=== PATIENT | male | born 1975 | race Caucasian/White ===

== ENCOUNTER 2019-02-17 08:11 | Emergency (ER) | payer OTHER ==
[~2019-02-17] VITALS: Ht 175.2 cm; Wt 74.8 kg
[~2019-02-17 08:11] MED LIST: ANAPROX DS550 MG PO; DARVOCET N 1001 TAB PO; KEFLEX500 MG PO; MOTRIN800 MG PO; PERCOCET 325 MG1 TA7 PO; ZITHROMAX Z PA250 MG PO
[2019-02-17 08:14] VITALS: BP 133/71
== END 2019-02-17 10:10 | disposition home or self-care (01) ==
LOC: ED 08:11
DX: S89.91XA Unspecified injury of right lower leg, initial encounter (principal); Z88.6 Allergy status to analgesic agent; X58.XXXA Exposure to other specified factors, initial encounter; Y93.89 Activity, other specified; Y92.59 Other trade areas as the place of occurrence of the external cause; Y99.8 Other external cause status

== ENCOUNTER 2019-05-24 05:25 | Inpatient (IN) | payer OTHER ==
[~2019-05-24] VITALS: Ht 175.2 cm; Wt 71.7 kg
[2019-05-24] MEDS ORDERED: BUSPIRONE HCL10 MG PO (05:32)
[2019-05-24] MEDS ORDERED: 'CLONIDINE0.1 MG PO (05:32)
[2019-05-24] MEDS ORDERED: NALTREXONE HCL50 MG PO (05:33)
[2019-05-24] MEDS ORDERED: OLANZAPINE10 MG PO (05:33)
[2019-05-24] MEDS ORDERED: VYVANSE70 MG PO (05:33)
[2019-05-24] MEDS ORDERED: LORAZEPAM0.5 MG PO (05:35)
[2019-05-24 05:37] VITALS: BP 90/59
--- NOTE | 2019-05-24 06:03 | NUR ---
PT THREW EMPTY URINAL ON FLOOR AND STATES "I WANT MY FUCKING DISCHARGE PAPERS". PHYSICIAN NOTIFIED AND AT BEDSIDE.
[2019-05-24 06:09] LABS: BASO % 0.3 % (0.0-1.0); EOS # 0.1 10*3/uL (0.0-0.4); EOS % 0.6 % (1.0-4.0); HEMATOCRIT 43.4 % (42.0-52.0); HEMOGLOBIN 15.4 g/dl (14.0-18.0); LYMPH # 0.7 10*3/uL (1.3-4.4); LYMPH % 8.4 % (27.0-41.0); MEAN CELL VOLUME 97.1 fl (80.0-94.0); MEAN CORPUSCULAR HGB 34.5 pg (27.0-31.0); MEAN CORPUSCULAR HGB CONC 35.5 g/dl (33.0-37.0); MEAN PLATELET VOLUME 11.6 fl (9.6-12.3); MONO # 0.7 10*3/uL (0.1-1.0); MONO % 8.4 % (3.0-9.0); NEUT # 7.3 10*3/uL (2.3-7.9); NEUT % 82.1 % (47.0-73.0); PLATELET COUNT AUTOMATED 117 10*3/uL (130-400); RED BLOOD COUNT 4.47 10*6/uL (4.50-5.90); RED CELL DISTRI WIDTH 14.2 % (0-14.5); WHITE BLOOD COUNT 8.9 10*3/uL (4.8-10.8)
[2019-05-24 06:24] LABS: ALBUMIN 3.4 gm/dl (3.1-4.5); ALKALINE PHOSPHATASE 84 U/L (45-117); BUN 24 mg/dl (7-24); CHLORIDE 110 mmol/L (98-107); CPK 752 U/L (39-308); CREATININE 1.27 mg/dL (0.70-1.30); POTASSIUM 4.3 mmol/L (3.5-5.1); SGOT/AST 38 IU/L (3-35); SGPT/ALT 33 U/L (12-78); SODIUM 142 mmol/L (136-145); TOTAL PROTEIN 6.4 gm/dL (6.4-8.2)
[2019-05-24 06:28] LABS: ACETAMINOPHEN (TYLENOL) < 5.0 ug/ml (10-30); ETHYL ALCOHOL < 3.0 mg/dl (<3); TROPONIN I < 0.015 ng/ml (<0.045)
--- NOTE | 2019-05-24 06:58 | NUR ---
PT CONITNUES TO BE UNCOOPERATIVE WITH LEAVING URINE SPECIMEN. URINAL AT BEDSIDE. IVF INFUSING PER ORDERS.
--- NOTE | 2019-05-24 07:10 | NUR ---
REPORT FROM ALEXUS MCKEON AT THIS TIME.
--- NOTE | 2019-05-24 09:17 | NUR ---
PATIENT HAS BEEN PLACED BACK INTO BED MULTIPLE TIMES. SECURITY HAS BEEN CALLED WHEN PATIENT WENT AROUND THE CORNER AND WAS ATTEMPTING TO GO UP THE HALLWAY. SECURITY IN ROOM WITH PATIENT AND WANDA MCKEON.
[2019-05-24 13:00] VITALS: BP 96/53
[2019-05-24 14:40] VITALS: BP 106/61
--- NOTE | 2019-05-24 14:40 | NUR ---
A 43, admitted to [facility]U, under the services of ED Thornton MD with a diagnosis of OVERDOSE. Chief complaint is PER FATHER HE HAS BEEN TAKING PILLS ALL DAY. Patient arrived via stretcher from ER. Monitor applied. Initial assessment completed. Vital signs taken and recorded. ED THORNTON MD notified of admission to the unit. Orders received. See assessment for past medical history, medications and allergies. Patient and/or family oriented to unit. [facility]U visitation policy reviewed. DOUGLAS DURANT
--- NOTE | 2019-05-24 14:40 | NUR ---
PATIENT TAKEN TO FLOOR BY THIS NURSE AND MARTHA RN. BEDSIDE GIVEN TO KEVIN MCKEON. NO CHANGE IN PATIENT STATUS. PATIENT STILL INCOMPREHENSIBLE WORDS AND IS DISORIENTED.
--- NOTE | 2019-05-24 15:14 | NUR ---
ADMISSION ORDERS RECEIVED FROM DR ROWE. [facility] NOTIFIED OF DR LEE CONSULT. PT CLIMBING OUT OF BED. UNABLE TO REORIENT PT. PT PULLING AT IV SITE. PLACED PT IN WRIST RESTRAINTS TO KEEP HIM FROM HARMING HIMSELF OR STAFF.
--- NOTE | 2019-05-24 15:20 | NUR ---
MEDICATED PT PER PRN ORDER WITH IV ATIVAN 1MG.
[2019-05-24 16:00] VITALS: BP 108/63
--- NOTE | 2019-05-24 17:50 | NUR ---
DR BONE IN TO SEE PT. HE SPOKE WITH PT'S EXGIRLFRIEND R/T PT'S HISTORY. I SHOWED DR BONE PT'S WOUNDS.
--- NOTE | 2019-05-24 18:56 | NUR ---
FABIÁN MIRZA NOTIFIED OF CONSULT.
--- NOTE | 2019-05-24 19:14 | NUR ---
PT CLIMBING OVER THE RAILS OF THE BED. PT REMAINS CONFUSED. UNABLE TO REORIENT. MEDICATED PT PER PRN ORDER WITH IV ATIVAN.
[2019-05-24 20:00] VITALS: BP 102/68
[2019-05-24 21:51] LABS: BILIRUBIN NEGATIVE (NEGATIVE); BLOOD NEGATIVE (NEGATIVE); CLARITY CLEAR (CLEAR); COLOR YELLOW (YELLOW); GLUCOSE NEGATIVE (NEGATIVE); KETONE NEGATIVE (NEGATIVE); LEUKO ESTERASE NEGATIVE (NEGATIVE); NITRITE NEGATIVE (NEGATIVE); UROBILINOGEN 0.2 E.U./dl (0.2-1.0)
[2019-05-24 22:00] LABS: EPITHELIAL CELLS 0-2
[2019-05-24 22:07] LABS: URINE AMPHETAMINES < 1000 (1000ng/ml); URINE BARBITURATES < 200 (200ng/ml); URINE BENZODIAZEPINES < 200 (200ng/ml); URINE CANNABINOIDS (THC) < 50 (50ng/ml); URINE COCAINE < 300 (300ng/ml); URINE METHADONE < 300 (300ng/ml); URINE OPIATES < 300 (300ng/ml)
[2019-05-24 22:09] LABS: URINE PHENCYCLIDINE < 25 (25ng/ml)
[2019-05-25] VITALS: BP 104/56
[2019-05-25 04:00] VITALS: BP 97/46
--- NOTE | 2019-05-25 05:45 | NUR ---
KRISTYISIDRORUTXU [id number] Please refer to the physician's history and physical for past medical history, comorbid conditions, and allergies. Diagnosis: METABOLIC ENCEPHALOPATHY DRUG OVERDOSE Alejandro Score: 18,LOW OR NO RISK WOUND DESCRIPTIONS: Wound Number: 1 Location of the wound: right knee Type of wound: abrasion Thickness: Partial Size: 3.7cm x 2.2cm x <0.1cm Tunneling: none Undermining: none Sinus Tract: none Presence of Exudate: none Amount: None Color: Red, yellow Odor: None Periwound Skin Appearance: Normal Wound edges: approximated Pain (associated with wound): none at time of assessment How does patient state this happened? pt unable to state how this happened Wound Number: 2 Location of the wound: left knee Type of wound: abrasion Thickness: Partial Size: 8.0cm x 2.5cm x <0.1cm Tunneling: none Undermining: none Sinus Tract: none Presence of Exudate: none Amount: None Color: Red, yellow Odor: None Periwound Skin Appearance: Normal Wound edges: approximated Pain (associated with wound): none at time of assessment How does patient state this happened? pt unable to state how this happened Wound Number: 3 Location of the wound: left lateral ankle proximal ( left lateral malleolus ) Type of wound: abrasion Thickness: Partial Size: .5cm x 0.5cm x <0.1cm Tunneling: none Undermining: none Sinus Tract: none Presence of Exudate: none Amount: None Color: yellow, brown Odor: None Periwound Skin Appearance: Erythema Wound edges: approximated Pain (associated with wound): none at time of assessment How does patient state this happened? pt unable to state how this happened Wound Number: 4 Location of the wound: left lateral ankle distal ( left ankle front ) Type of wound: abrasion Thickness: Partial Size: 0.5cm x 0.4cm x <0.1cm Tunneling: none Undermining: none Sinus Tract: none Presence of Exudate: none Amount: None Color: yellow, brown Odor: None Periwound Skin Appearance: Normal Wound edges: approximated Pain (associated with wound): none at time of assessment How does patient state this happened? pt unable to state how this happened Wound Number: 5 Location of the wound: left great toe ( proximal left great toe ) Thickness: Full Size: 0.6cm x 1.1cm x <0.1cm Tunneling: none Undermining: none Sinus Tract: none Presence of Exudate: none Amount: None Color: Yellow, brown Odor: None Periwound Skin Appearance: Erythema Wound edges: approximated Pain (associated with wound): none at time of assessment How does patient state this happened? pt unable to state how this happened Wound Number: 6 Location of the wound: left second toe distal ( left second toe ) Thickness: Full Size: 0.2cm x 0.4cm x <0.1cm Tunneling: none Undermining: none Sinus Tract: none Presence of Exudate: none Amount: None Color: Brown, yellow Odor: None Periwound Skin Appearance: Erythema Wound edges: approximated Pain (associated with wound): none at time of assessment How does patient state this happened? pt unable to state how this happened Wound Number: 7 Location of the wound: right great toe ( proximal right great toe ) Thickness: Full Size: 0.6cm x 2.0cm x <.1cm Tunneling: none Undermining: none Sinus Tract: none Presence of Exudate: none Amount: None Color: Brown, yellow Odor: None Periwound Skin Appearance: Erythema Wound edges: approximated Pain (associated with wound): none at time of assessment How does patient state this happened? pt unable to state how this happened Wound Number: 8 Location of the wound: right second toe Thickness: Full Size: 0.4cm x 0.7cm x <0.1cm Tunneling: none Undermining: none Sinus Tract: none Presence of Exudate: none Amount: None Color: Brown, yellow Odor: None Periwound Skin Appearance: Erythema Wound edges: approximated Pain (associated with wound): none at time of assessment How does patient state this happened? pt unable to state how this happened Wound Number: 9 Location of the wound: left second toe proximal Thickness: Full Size: 0.2cm x 0.6cm x <0.1cm Tunneling: none Undermining: none Sinus Tract: none Presence of Exudate: none Amount: None Color: Brown, yellow Odor: None Periwound Skin Appearance: Erythema Wound edges: approximated Pain (associated with wound): none at time of assessment How does patient state this happened? pt unable to state how this happened Surface the patient is resting on: XPRT SKIN PREVENTION RECOMMENDATION: 1. Pressure redistribution support surface as appropriate 2. Elevate heels 3. Remove boots/TEDS every shift and reapply 4. Head of bed 30 degrees as tolerated 5. Assess nutrition and hydration 6. Manage moisture 7. Avoid the use of containment devices while in bed 8. Use absorptive products on surfaces limit layers of linens on bed 9. Turn and reposition every 1-2 hours in bed and every 1 hour in chair as tolerated 10. Weight shifts every 15 minutes while up in chair 11. Offloading with pillows or device to keep heels elevated off bed 12. Monitor skin at least every shift 13. Inspect under medical devices twice a day WOUND TREATMENT RECOMMENDATIONS: Dressing change: Cleanse right knee, left knee, left lateral ankle proximal, left lateral ankle distal, right 2nd toe, right great toe, left great toe, left 2nd toe proximal, and left 2nd toe distal with nss and apply bacitracin daily and prn for soiling.
[2019-05-25 06:07] LABS: BUN 16 mg/dl (7-24); CHLORIDE 114 mmol/L (98-107); CREATININE 0.93 mg/dL (0.70-1.30); POTASSIUM 3.6 mmol/L (3.5-5.1); SODIUM 144 mmol/L (136-145)
[2019-05-25 06:11] LABS: BASO % 0.3 % (0.0-1.0); EOS # 0.2 10*3/uL (0.0-0.4); EOS % 3.1 % (1.0-4.0); HEMOGLOBIN 14.5 g/dl (14.0-18.0); LYMPH # 1.1 10*3/uL (1.3-4.4); LYMPH % 18.6 % (27.0-41.0); MEAN CELL VOLUME 97.4 fl (80.0-94.0); MEAN CORPUSCULAR HGB 33.6 pg (27.0-31.0); MEAN CORPUSCULAR HGB CONC 34.5 g/dl (33.0-37.0); MEAN PLATELET VOLUME 12.3 fl (9.6-12.3); MONO # 0.5 10*3/uL (0.1-1.0); MONO % 7.7 % (3.0-9.0); NEUT # 4.1 10*3/uL (2.3-7.9); NEUT % 70.1 % (47.0-73.0); PLATELET COUNT AUTOMATED 99 10*3/uL (130-400); RED BLOOD COUNT 4.31 10*6/uL (4.50-5.90); WHITE BLOOD COUNT 5.9 10*3/uL (4.8-10.8)
[2019-05-25 08:00] VITALS: BP 104/50
--- NOTE | 2019-05-25 08:00 | NUR ---
PT SLEEPING. VSS. NO ACUTE DISTRESS NOTED.
--- NOTE | 2019-05-25 09:40 | NUR ---
psychiatric assessment: attempted to meet with client, he was very drowsy and c/o couldnt hear me, wendy kauffman attempted to help ask questions in a loud voice so he could hear, he was not willing to discuss and kept falling asleep,. appears to have some confusion as to what hospital he is in or what happened, i will need to wait until client is awake and alert to determine whether this was suicide attempt or if he is suicidal,. client is prescribed many medications from [facility] unsure what he took as his urine drug was negative. will follow as needed. dr watt has not been in yet this am.
[2019-05-25 12:00] VITALS: BP 98/50
--- NOTE | 2019-05-25 12:23 | NUR ---
PT AWAKE AND ALERT TO PERSON AND PLACE. VSS. PT ABLE TO ANSWER QUESTIONS ASKED AND FOLLOW COMMANDS. LUNCH ORDERED. PT DID FALL BACK ASLEEP.
--- NOTE | 2019-05-25 12:25 | NUR ---
PT AWAKE AND ALERT. RESTRAINTS UNTIED FROM THE BED.
[2019-05-25 16:00] VITALS: BP 101/54
--- NOTE | 2019-05-25 16:46 | NUR ---
PT RESTING. NO ACUTE DISTRESS NOTED AT THIS TIME.
--- NOTE | 2019-05-25 17:26 | NUR ---
PT'S EXGIRLFRIEND,THANG, BROUGHT IN COPIED TEXT MESSAGES FROM HER PHONE WHERE PT HAD THREATENED TO KILL HIMSELF. I PLACED THOSE IN HIS CHART FOR THE DOCTORS TO READ.
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
--- NOTE | 2019-05-25 19:01 | NUR ---
DR BONE UPDATED ON WHAT PT VOICED WHEN ASKED WHAT HAPPENED TO HIM PRIOR TO ADMISSION. DR BONE STATED TO UPDATE PSYCH AND ASK THEM ABOUT RENEWING HIS HOME MEDS. DR BONE DID ORDER MOTRIN FOR PT'S C/O BACK PAIN.
[2019-05-25 20:00] VITALS: BP 122/65
--- NOTE | 2019-05-25 20:11 | NUR ---
PATIENT DROWSY, BUT IS ABLE TO ANSWER QUESTIONS APPROPRIATELY THROUGHOUT ASSESSMENT. PATIENT IS ABLE TO USE URINAL AND REPOSITIONS SELF WITHOUT DIFFICULTY. PATIENT EXHIBITS A FLAT AFFECT THROUGHOUT ASSESSMENT AND ANSWERS "I DON'T KNOW" TO MULTIPLE QUESTIONS ON SUICIDE RISK ASSESSMENT. PATIENT STATES HE DOESN'T WANT TO HURT HIMSELF AT THIS TIME. CALL LIGHT WITHIN REACH. SEE ASSESSMENT.
[2019-05-26] VITALS: BP 105/34
[2019-05-26 04:00] VITALS: BP 96/51
--- NOTE | 2019-05-26 04:57 | NUR ---
Recommend follow up for wound care in outpatient setting patient refused at this time.
--- NOTE | 2019-05-26 06:00 | NUR ---
SCHEDULED DOSE OF PO ATIVAN GIVEN. PATIENT IS ABLE TO STAND AT THE BEDSIDE TO USE URINAL W/O ASSIST. PATIENT'S GAIT APPEARS MORE STEADY THEN THE NIGHT PRIOR. PATIENT DENIES ANY PAIN, DISCOMFORT. PT DENIES ANY N/V/D. CALL LIGHT WITHIN REACH.
[2019-05-26 06:07] LABS: BUN 13 mg/dl (7-24); CHLORIDE 118 mmol/L (98-107); CREATININE 1.02 mg/dL (0.70-1.30); POTASSIUM 3.8 mmol/L (3.5-5.1); SODIUM 147 mmol/L (136-145)
[2019-05-26 06:33] LABS: BASO % 0.4 % (0.0-1.0); EOS # 0.2 10*3/uL (0.0-0.4); EOS % 3.2 % (1.0-4.0); HEMATOCRIT 40.2 % (42.0-52.0); HEMOGLOBIN 13.8 g/dl (14.0-18.0); LYMPH # 1.4 10*3/uL (1.3-4.4); MEAN CELL VOLUME 98.3 fl (80.0-94.0); MEAN CORPUSCULAR HGB 33.7 pg (27.0-31.0); MEAN CORPUSCULAR HGB CONC 34.3 g/dl (33.0-37.0); MEAN PLATELET VOLUME 12.2 fl (9.6-12.3); MONO # 0.5 10*3/uL (0.1-1.0); MONO % 9.9 % (3.0-9.0); NEUT % 59.3 % (47.0-73.0); PLATELET COUNT AUTOMATED 115 10*3/uL (130-400); RED BLOOD COUNT 4.09 10*6/uL (4.50-5.90)
--- NOTE | 2019-05-26 07:19 | NUR ---
Shift chart check completed.24 HR chart check completed.
[2019-05-26 08:00] VITALS: BP 120/80; BP 122/62
--- NOTE | 2019-05-26 08:23 | NUR ---
PT AROUSES TO HIS NAME. ABLE TO SAY HE'S "ON THE 4TH FLOOR" AT "[facility]". WHEN I ASKED WHY HE WAS HERE HE SAYS "I HAVE ISSUES". WHEN I ASKED IF HE WANTS TO HURT HIMSELF TODAY HE SHOOK HIS HEAD "NO". VISITOR AT BEDSIDE. IV FLUIDS CONTINUE. SEE ALL APPROPRIATE INTERVENTIONS.
--- NOTE | 2019-05-26 10:15 | NUR ---
DR LEE HERE. [facility] CALLED AND DR GALDAMEZ ASKED IF HE WILL BE SEEING THE PATIENT. PER STAFF THERE DR LEE TO SEE PATIENT FIRST AND "THEY WILL GO FROM THERE".
--- NOTE | 2019-05-26 11:35 | NUR ---
PER ROSA, AFTER DISCUSSION WITH GILLIAN STOREY TO START HOME MEDS. ORDERS RECEIVED FROM DR BONE.
[2019-05-26 12:00] VITALS: BP 120/68
--- NOTE | 2019-05-26 15:37 | NUR ---
FABIÁN MIRZA PHONED AND UPDATED ON DR LEE'S RECOMMENDATIONS. PT HAS BEEN COOPERATIVE AND MOSTLY RESTING.
--- NOTE | 2019-05-26 15:56 | NUR ---
met with client who is awaker and alert today, he is pleasant, he reports that he did not try to kill himself, he said that he took medications to sleep and he is treated at [facility], he said that he really needs his adderall and is upset that he canst have it, he is denying that he is suicidal to me, he said he knows he wrote some things on fascebook, but he was only looking for someone to talk to, he has had a recent loss of girlfriend and his job, there may be hx of alcohol abuse. client is not a good historian, therefore he may benefit from inpatient psychiatric care to stabalize. dr watt has not been in yet for medical clearance , i will wait to see what he wants to do, if he wants him sent somewhere i can make those arrangements once he is stable. he will need to be pink slipped.
[2019-05-26 16:00] VITALS: BP 122/77
--- NOTE | 2019-05-26 16:00 | NUR ---
FABIÁN MIRZA HERE TO SEE PATIENT.
[2019-05-26 20:00] VITALS: BP 127/76
[2019-05-27] VITALS: BP 128/77
--- NOTE | 2019-05-27 00:37 | NUR ---
PATIENT MEDCATED WITH ATIVAN IV PER DRS ORDERS, PATIENT IS VISIBLY ANXIOUS AND IS RESTLESS IN BED. TOSSING AND TURNING AND IS BECOMING AGITATED D/T "NOT HAVING ADDERALL" RN WILL MONITOR
--- NOTE | 2019-05-27 01:45 | NUR ---
PATIENT RESTING MORE SOUNDLY SINCE EARLIER MEDICATION. RN WILL CONINUE TO MONITOR
[2019-05-27 04:00] VITALS: BP 112/72
[2019-05-27 05:32] LABS: BUN 7 mg/dl (7-24); CHLORIDE 114 mmol/L (98-107); CREATININE 0.89 mg/dL (0.70-1.30); POTASSIUM 3.6 mmol/L (3.5-5.1); SODIUM 145 mmol/L (136-145)
[2019-05-27 06:14] LABS: BASO % 0.4 % (0.0-1.0); EOS # 0.1 10*3/uL (0.0-0.4); EOS % 2.4 % (1.0-4.0); HEMATOCRIT 40.3 % (42.0-52.0); LYMPH # 1.2 10*3/uL (1.3-4.4); LYMPH % 23.9 % (27.0-41.0); MEAN CELL VOLUME 97.6 fl (80.0-94.0); MEAN CORPUSCULAR HGB 33.9 pg (27.0-31.0); MEAN CORPUSCULAR HGB CONC 34.7 g/dl (33.0-37.0); MEAN PLATELET VOLUME 12.4 fl (9.6-12.3); MONO # 0.5 10*3/uL (0.1-1.0); MONO % 9.3 % (3.0-9.0); NEUT # 3.2 10*3/uL (2.3-7.9); NEUT % 63.8 % (47.0-73.0); PLATELET COUNT AUTOMATED 110 10*3/uL (130-400); RED BLOOD COUNT 4.13 10*6/uL (4.50-5.90); RED CELL DISTRI WIDTH 13.6 % (0-14.5)
--- NOTE | 2019-05-27 07:12 | NUR ---
Shift chart check completed.24 HR chart check completed.
[2019-05-27 08:00] VITALS: BP 127/76
[2019-05-27 08:05] VITALS: BP 138/80
--- NOTE | 2019-05-27 09:37 | NUR ---
ON ASSESSMENT PATIENT IS ALERT, ORIENTED.ANXIOUS TO GO HOME. ON QUESTIONING HE SAYS THAT HE DID WANT TO HURT HIMSELF BEFORE HE CAME IN, BUT HE'S TALKED WITH HIS FAMILY AND HE WANTS TO BE DISCHARGED AND START TO LOOK FOR A JOB. BUT THAT HE "CAN'T THINK CLEARLY WITHOUT HIS ADDERAL". WHEN I SAY THAT HIS MEDICATIONS DON'T SHOW ANY ADDERAL, BUT ALTAGRACIA PT STATES "WHATEVER IT IS". DR BONE HAS VISITED. HE SAYS PSYCH TO DECIDE THE NEXT STEP, THAT HE'S MEDICALLY STABLE.
--- NOTE | 2019-05-27 10:27 | NUR ---
NURSING DIRECTORS JUANA HAVE BEEN ATTEMPTING TO REACH PSYCHIATRY AND PSYCHOLOGY FOR PLAN OF CARE.
--- NOTE | 2019-05-27 11:09 | NUR ---
FABIÁN MIRZA CALLED ME. TO FAX DEMOGRAPHICS, H/P, CONSULTATIONS, LABS TO [facility].
--- NOTE | 2019-05-27 11:40 | NUR ---
Nutritional Support Services Note: Pt is eating 100% of regular diet as ordered. Wounds noted as well as cellulitis. Continue to encourage 100% po intake of meals. Need for increased kcal and protein. Declined supplement. Will follow as needed. Ht.5'9 Wt.158# IBW 160# Luz [address] L[address]
--- NOTE | 2019-05-27 11:41 | NUR ---
PT RESTING EASILY WITH HIS EYES CLOSED. NO RESPIRATORY DISTRESS. NO SEIZURE ACTIVITY. NO AGITATION.
[2019-05-27 12:00] VITALS: BP 134/81
--- NOTE | 2019-05-27 12:25 | NUR ---
RESTING QUIETLY AT PRESENT.
--- NOTE | 2019-05-27 12:25 | NUR ---
RESTING QUIETLY AT THIS TIME. BIPAP IN PLACE.
--- NOTE | 2019-05-27 14:03 | NUR ---
PT HAS BEEN RESTING EASILY. IVF D/C PER ORDER. PT ASKED "DOES THAT MEAN I CAN GO HOME?" I INFORMED HIM THAT DR BONE SAID HE'S MEDICALLY STABLE FOR WHATEVER PSYCH DECIDES TO DO.
--- NOTE | 2019-05-27 14:14 | NUR ---
DR LEE HERE TO SEE PT. PINK SLIP COMPLETED FOR AN INPATIENT HOSPITALIZATION.
--- NOTE | 2019-05-27 14:35 | NUR ---
DR LEE INFORMED PT HE WOULD BE GOING TO AN IN-PATIENT FACILITY. PT BECAME UPSET. HE DID ASK TO GO TO THE BATHROOM TO MOVE HIS BOWELS. I ACCOMPANIED HIM TO BATHROOM AND STOOD OUTSIDE THE DOOR, WALKED HIM BACK TO BED. MEDICATED WITH PRN DOSE OF IV ATIVAN FOR ANXIETY. FABIÁN MIRZA NOTIFIED THAT PINK [facility]IP HAS BEEN COMPLETED. SHE HASN'T HEARD FROM [facility] AT THIS TIME.
--- NOTE | 2019-05-27 15:51 | NUR ---
FABIÁN MIRZA CALLED WITH A BED AT [facility]. PINK SLIP BEING FAXED TO THEM. FIELD ACCOUNT MANAGER MAKING AMBULANCE ARRANGEMENTS.
--- NOTE | 2019-05-27 15:59 | NUR ---
PT'S DAUGHTER AND GIRLFRIEND NOTIFIED OF PT BEING TRANSFERRED TO [facility]. DR BONE NOTIFIED AND DISCHARGE ORDER RECEIVED.
[2019-05-27 16:00] VITALS: BP 122/79
--- NOTE | 2019-05-27 16:31 | NUR ---
DISCHARGE WOUND PHOTOS NOT TAKEN THE AMBULANCE ON THE WAY AND COULD NOT LOCATE THE WOUND CARE [facility].
--- NOTE | 2019-05-27 16:53 | NUR ---
[facility] WAS LOCATED AND PHOTOS TAKEN. IV REMOVED. PT DISCHARGED IN STABLE CONDITION WITH ALL OF HIS BELONGINGS VIA [facility].
--- NOTE | 2019-05-27 17:04 | NUR ---
REPORT TO ARSENIO AT [facility].
== END 2019-05-27 18:19 | disposition home health service (06) | DRG 812 ==
LOC: ED 05:25 → ICCU 09:13 → EDHOLD 09:13 → ICCU 14:01
PROVIDERS: Emergency Medicine; ADMIT Internal Medicine
DX: T50.991A Poisoning by other drugs, medicaments and biological substances, accidental (unintentional), initial encounter (principal); L03.116 Cellulitis of left lower limb; L03.115 Cellulitis of right lower limb; F31.9 Bipolar disorder, unspecified; F17.210 Nicotine dependence, cigarettes, uncomplicated; F10.10 Alcohol abuse, uncomplicated; Y92.098 Other place in other non-institutional residence as the place of occurrence of the external cause; Z98.52 Vasectomy status; Z88.6 Allergy status to analgesic agent; Z82.49 Family history of ischemic heart disease and other diseases of the circulatory system; Z80.8 Family history of malignant neoplasm of other organs or systems; Z71.6 Tobacco abuse counseling; Z89.029 Acquired absence of unspecified finger(s)

== ENCOUNTER → 2019-06-28 | Outpatient (CLI) | payer OTHER ==
[~2019-06-28] MED LIST changes: +'CLONIDINE0.1 MG PO; +BUSPIRONE HCL10 MG PO; +LORAZEPAM0.5 MG PO; +NALTREXONE HCL50 MG PO; +OLANZAPINE10 MG PO; +VYVANSE70 MG PO
[2019-06-28 10:30] LABS: MEAN CELL VOLUME 97.4 fl (80.0-94.0); MEAN CORPUSCULAR HGB 33.8 pg (27.0-31.0); MEAN CORPUSCULAR HGB CONC 34.7 g/dl (33.0-37.0); MEAN PLATELET VOLUME 11.1 fl (9.6-12.3); RED BLOOD COUNT 5.03 10*6/uL (4.50-5.90); RED CELL DISTRI WIDTH 13.6 % (0-14.5); WHITE BLOOD COUNT 5.3 10*3/uL (4.8-10.8)
[2019-06-28 10:57] LABS: ALBUMIN 3.7 gm/dl (3.1-4.5); ALKALINE PHOSPHATASE 69 U/L (45-117); BUN 6 mg/dl (7-24); CHLORIDE 109 mmol/L (98-107); CHOLESTEROL 156 mg/dL (<200); CREATININE 1.04 mg/dL (0.70-1.30); HDL CHOLESTEROL 51 mg/dl (40-60); LDL CHOLESTEROL 86 mg/dL (9-159); POTASSIUM 3.9 mmol/L (3.5-5.1); SGOT/AST 11 IU/L (3-35); SGPT/ALT 25 U/L (12-78); SODIUM 143 mmol/L (136-145); TOTAL PROTEIN 6.6 gm/dL (6.4-8.2); TRIGLYCERIDES 93 mg/dl (<150); VLDL CHOLESTEROL 19 mg/dL (6-40)
[2019-06-29 09:08] LABS: PROSTATE SPECIFIC AG FREE 0.36 ng/mL; PROSTATE SPECIFIC AG, SERUM 1.1 ng/mL (0.0-4.0)
[2019-06-29 20:06] LABS: TESTOSTERONE FREE, (DIRECT) 12.6 pg/mL (6.8-21.5)
== END | disposition home or self-care (01) ==
LOC: LAB 09:59
PROVIDERS: Family Medicine
DX: E55.9 Vitamin D deficiency, unspecified (principal); N40.0 Benign prostatic hyperplasia without lower urinary tract symptoms

== ENCOUNTER → 2019-09-30 | Outpatient (CLI) | payer OTHER ==
[2019-09-30 11:00] LABS: HEMATOCRIT 47.8 % (42.0-52.0); MEAN CORPUSCULAR HGB 34.1 pg (27.0-31.0); MEAN CORPUSCULAR HGB CONC 35.6 g/dl (33.0-37.0); MEAN PLATELET VOLUME 11.5 fl (9.6-12.3); RED BLOOD COUNT 4.98 10*6/uL (4.50-5.90); WHITE BLOOD COUNT 3.7 10*3/uL (4.8-10.8)
[2019-09-30 11:18] LABS: ALBUMIN 3.9 gm/dl (3.1-4.5); ALKALINE PHOSPHATASE 61 U/L (45-117); BUN 9 mg/dl (7-24); CHLORIDE 107 mmol/L (98-107); CHOLESTEROL 168 mg/dL (<200); CREATININE 1.27 mg/dL (0.70-1.30); HDL CHOLESTEROL 37 mg/dl (40-60); LDL CHOLESTEROL 115 mg/dL (9-159); POTASSIUM 4.5 mmol/L (3.5-5.1); SGOT/AST 20 IU/L (3-35); SGPT/ALT 28 U/L (12-78); SODIUM 140 mmol/L (136-145); TOTAL PROTEIN 7.1 gm/dL (6.4-8.2); TRIGLYCERIDES 78 mg/dl (<150); VLDL CHOLESTEROL 16 mg/dL (6-40)
[2019-10-02 04:04] LABS: TESTOSTERONE FREE, (DIRECT) 9.2 pg/mL (6.8-21.5)
== END | disposition home or self-care (01) ==
LOC: LAB 10:07
PROVIDERS: Family Medicine
DX: E78.00 Pure hypercholesterolemia, unspecified (principal); N52.9 Male erectile dysfunction, unspecified; M54.5 Low back pain; F17.200 Nicotine dependence, unspecified, uncomplicated

== ENCOUNTER → 2020-03-27 | Outpatient (CLI) | payer OTHER ==
[2020-03-27 11:02] LABS: HEMATOCRIT 44.4 % (42.0-52.0); MEAN CELL VOLUME 94.9 fl (80.0-94.0); MEAN CORPUSCULAR HGB 32.7 pg (27.0-31.0); MEAN CORPUSCULAR HGB CONC 34.5 g/dl (33.0-37.0); MEAN PLATELET VOLUME 12.1 fl (9.6-12.3); RED BLOOD COUNT 4.68 10*6/uL (4.50-5.90); RED CELL DISTRI WIDTH 13.7 % (0-14.5); WHITE BLOOD COUNT 6.9 10*3/uL (4.8-10.8)
[2020-03-27 11:34] LABS: ALBUMIN 3.5 gm/dl (3.1-4.5); BUN 9 mg/dl (7-24); CHLORIDE 110 mmol/L (98-107); CREATININE 0.98 mg/dL (0.70-1.30); POTASSIUM 3.6 mmol/L (3.5-5.1); SGOT/AST 13 IU/L (3-35); SGPT/ALT 20 U/L (12-78); SODIUM 143 mmol/L (136-145)
[2020-03-27 11:36] LABS: ALKALINE PHOSPHATASE 65 U/L (45-117); TOTAL PROTEIN 6.2 gm/dL (6.4-8.2)
== END | disposition home or self-care (01) ==
LOC: LAB 10:18
PROVIDERS: ATTEND Family Medicine
DX: R23.3 Spontaneous ecchymoses (principal); R53.83 Other fatigue

== ENCOUNTER 2020-05-07 23:14 | Emergency (ER) | payer OTHER ==
[~2020-05-07] VITALS: Ht 175.2 cm; Wt 90.7 kg
[2020-05-07 23:51] LABS: BASO % 0.3 % (0.0-1.0); EOS # 0.3 10*3/uL (0.0-0.4); EOS % 4.9 % (1.0-4.0); HEMATOCRIT 45.1 % (42.0-52.0); LYMPH # 1.4 10*3/uL (1.3-4.4); LYMPH % 23.3 % (27.0-41.0); MEAN CORPUSCULAR HGB 33.3 pg (27.0-31.0); MEAN CORPUSCULAR HGB CONC 34.4 g/dl (33.0-37.0); MEAN PLATELET VOLUME 11.2 fl (9.6-12.3); MONO # 0.5 10*3/uL (0.1-1.0); MONO % 7.7 % (3.0-9.0); NEUT # 3.8 10*3/uL (2.3-7.9); NEUT % 63.3 % (47.0-73.0); PLATELET COUNT AUTOMATED 160 10*3/uL (130-400); RED BLOOD COUNT 4.65 10*6/uL (4.50-5.90); RED CELL DISTRI WIDTH 13.5 % (0-14.5)
[2020-05-08 00:07] LABS: ACETAMINOPHEN (TYLENOL) < 5.0 ug/ml (10-30); ALBUMIN 3.3 gm/dl (3.1-4.5); ALKALINE PHOSPHATASE 59 U/L (45-117); BUN 14 mg/dl (7-24); CHLORIDE 112 mmol/L (98-107); CREATININE 1.03 mg/dL (0.70-1.30); POTASSIUM 3.8 mmol/L (3.5-5.1); SGOT/AST 19 IU/L (3-35); SGPT/ALT 33 U/L (12-78); SODIUM 147 mmol/L (136-145); TOTAL PROTEIN 6.7 gm/dL (6.4-8.2)
[2020-05-08 02:23] LABS: BILIRUBIN Negative (Negative); BLOOD Trace-Lysed (Negative); CLARITY Clear (Clear); COLOR Yellow (Yellow); GLUCOSE Negative (Negative); KETONE Negative (Negative); LEUKO ESTERASE Negative (Negative); NITRITE Negative (Negative); PH 6.5 (4.5-8.0); UROBILINOGEN 0.2 E.U./dl (0.0-1.0)
[2020-05-08 02:32] LABS: URINE AMPHETAMINES < 1000 (1000ng/ml); URINE BARBITURATES < 200 (200ng/ml); URINE BENZODIAZEPINES < 200 (200ng/ml); URINE CANNABINOIDS (THC) > 50 (50ng/ml); URINE COCAINE < 300 (300ng/ml); URINE METHADONE < 300 (300ng/ml); URINE OPIATES < 300 (300ng/ml); URINE PHENCYCLIDINE < 25 (25ng/ml)
[2020-05-08 07:38] VITALS: BP 106/60
== END 2020-05-08 13:59 | disposition home or self-care (01) ==
LOC: ED 23:14
PROVIDERS: Emergency Medicine
DX: F10.929 Alcohol use, unspecified with intoxication, unspecified (principal); E87.0 Hyperosmolality and hypernatremia; Z79.899 Other long term (current) drug therapy; Y90.9 Presence of alcohol in blood, level not specified

== ENCOUNTER → 2020-11-29 | Outpatient (CLI) | payer OTHER ==
[2020-11-29 11:27] LABS: HEMATOCRIT 46.1 % (42.0-52.0); MEAN CELL VOLUME 98.1 fl (80.0-94.0); MEAN CORPUSCULAR HGB 33.8 pg (27.0-31.0); MEAN CORPUSCULAR HGB CONC 34.5 g/dl (33.0-37.0); MEAN PLATELET VOLUME 11.6 fl (9.6-12.3); RED BLOOD COUNT 4.7 10*6/uL (4.50-5.90); RED CELL DISTRI WIDTH 12.9 % (0-14.5); WHITE BLOOD COUNT 5.9 10*3/uL (4.8-10.8)
[2020-11-29 11:55] LABS: ALBUMIN 3.5 gm/dl (3.1-4.5); ALKALINE PHOSPHATASE 62 U/L (45-117); BUN 13 mg/dl (7-24); CHLORIDE 109 mmol/L (98-107); CHOLESTEROL 130 mg/dL (<200); CREATININE 0.89 mg/dL (0.70-1.30); FREE T4 0.85 ng/dl (0.76-1.46); LDL CHOLESTEROL 70 mg/dL (9-159); POTASSIUM 4.1 mmol/L (3.5-5.1); SGOT/AST 11 IU/L (3-35); SGPT/ALT 26 U/L (12-78); SODIUM 142 mmol/L (136-145); TOTAL PROTEIN 6.7 gm/dL (6.4-8.2); TRIGLYCERIDES 74 mg/dl (<150)
[2020-11-29 13:04] LABS: VITAMIN D, 25-HYDROXY 26.7 ng/mL (30-100)
== END | disposition home or self-care (01) ==
LOC: LAB 10:57
PROVIDERS: ATTEND Family Medicine
DX: K76.0 Fatty (change of) liver, not elsewhere classified (principal); E55.9 Vitamin D deficiency, unspecified; R20.2 Paresthesia of skin; R53.83 Other fatigue; N52.9 Male erectile dysfunction, unspecified; F10.20 Alcohol dependence, uncomplicated